=== PATIENT | male | born 1995 | race African-American/Black ===

== ENCOUNTER 2024-07-05 17:58 | Emergency (ER) | payer BC ==
[~2024-07-05] VITALS: Ht 182.9 cm; Wt 100.0 kg
[2024-07-05 18:43] VITALS: BP 127/66; TEMP 36.50292; O2SAT 100
[2024-07-05] MEDS: DEXAMETHASONE 10 MG/ML VIAL IM ONE (20:30)
[2024-07-05 20:52] VITALS: PULSE 83; RESP 18; O2SAT 98
[2024-07-05] MEDS: ALBUTEROL (0.083%) 2.5MG/3ML NEB HHN ONE (20:54)
== END 2024-07-05 22:54 | disposition home or self-care (01) ==
LOC: ER 17:58
DX: B34.9 Viral infection, unspecified (principal); R06.02 Shortness of breath
CPT/HCPCS: 71045; 94640; 99283; Z7610 ×3